=== PATIENT | female | born 1985 | race Caucasian/White ===

== ENCOUNTER → 2023-05-13 14:02 | Outpatient (CLI) | payer OTHER, MEDICAID, SELFPAY ==
[2023-05-13 19:41] LABS: Add Manual Diff / Slide Review NO; Basophils Absolute Auto 100 /uL (0-100); Basophils Percent Auto 0.9 % (0-2); Eosinophils Absolute Auto 100 /uL (0-450); Hematocrit 33.5 % (36-46); Hemoglobin 11.7 g/dL (12.0-16.0); Lymphocytes Absolute Auto 2200 /uL (1100-4500); Lymphocytes Percent Auto 35.1 % (25-40); Mean Corpuscular HGB Conc 34.8 % (30-36); Mean Corpuscular Hemoglobin 32.6 PG (26-34); Mean Corpuscular Volume 93.8 fL (80-100); Monocytes Absolute Auto 600 /uL (0-900); Monocytes Percent Auto 9.4 % (3-14); Neutrophils Absolute Auto 3300 /uL (1500-7000); Neutrophils Percent Auto 52.6 % (50-75); Platelet Count 206 X10^3/uL (150-400); Red Blood Cell Count 3.58 X10^6/uL (4.0-5.2); Red Cell Distribution Width 13.5 % (11.6-14.8); White Blood Cell Count 6.2 X10^3/uL (4.5-11.0)
[2023-05-13 20:02] LABS: BUN Creatinine Ratio 26.8 (6-22); Blood Urea Nitrogen 19 mg/dL (7-17); Calcium 9.9 mg/dL (8.4-10.2); Carbon Dioxide 24 mmol/L (22-32); Chloride 104 mmol/L (98-107); Estimated Glomerular Filt Rate > 60 mL/min (>60); Glucose 76 mg/dL (70-100); HEMOLYSIS < 15 (0-50); Sodium 136 mmol/L (137-145)
[2023-05-13 20:23] LABS: Thyroid Stimulating Hormone 0.448 uIU/mL (0.47-4.68)
[2023-05-14 23:26] LABS: Triiodothyronine T3 Total 86 ng/dL (71-180)
== END ==
PROVIDERS: PCP Family Medicine; Visit Provider Internal Medicine Endocrinology, Diabetes & Metabolism
DX: E03.9 Hypothyroidism, unspecified (principal); R00.0 Tachycardia, unspecified; R55 Syncope and collapse
CPT/HCPCS: 80048; 84443; 84480; 85025

== ENCOUNTER → 2025-03-01 11:41 | Outpatient (CLI) | payer OTHER, SELFPAY ==
[2025-03-01 18:48] LABS: Hematocrit 37.6 % (36-46); Hemoglobin 12.6 g/dL (12.0-16.0); Mean Corpuscular HGB Conc 33.7 % (30-36); Mean Corpuscular Hemoglobin 30.7 PG (26-34); Mean Corpuscular Volume 91.3 fL (80-100); Platelet Count 254 X10^3/uL (150-400)
[2025-03-01 18:50] LABS: HEMOLYSIS 15 (0-50); Iron 126 ug/dL (37-170)
[2025-03-01 18:54] LABS: Blood Urea Nitrogen 16 mg/dL (7-17); Calcium 9.7 mg/dL (8.4-10.2); Carbon Dioxide 25 mmol/L (22-32); Chloride 103 mmol/L (98-107); Cholesterol 318 mg/dL (140-199); Estimated Glomerular Filt Rate > 60 mL/min (>60); Glucose 106 mg/dL (70-99); HDL Cholesterol 104 mg/dL (40-60); HEMOLYSIS < 15 (0-50); Potassium 4.1 mmol/L (3.4-5.1); Sodium 136 mmol/L (137-145); Triglycerides 77 mg/dL (35-150)
[2025-03-01 19:03] LABS: Percent Iron Saturation 32 % (15-50); Total Iron Binding Capacity 398 ug/dL (265-497); Transferrin 353 mg/dL (206-381)
[2025-03-01 19:18] LABS: Vitamin D 25 Hydroxy (D3) 35.5 ng/mL (30.0-100.0)
[2025-03-01 19:21] LABS: TSH w/ Reflex to FT4 1.92 uIU/mL (0.47-4.68); Thyroid Stimulating Hormone 1.92 uIU/mL (0.47-4.68)
[2025-03-01 19:29] LABS: Ferritin 11 ng/mL (6-137)
[2025-03-01 19:57] LABS: Folate 7.7 ng/mL (2.76-20.0); Vitamin B12 274 pg/mL (239-931)
== END ==
PROVIDERS: PCP Family Medicine; Visit Provider Family Medicine
DX: D89.40 Mast cell activation, unspecified (principal); Z98.84 Bariatric surgery status; E56.9 Vitamin deficiency, unspecified; E06.3 Autoimmune thyroiditis; E03.8 Other specified hypothyroidism; D50.9 Iron deficiency anemia, unspecified; L50.9 Urticaria, unspecified
CPT/HCPCS: 80048; 80061; 82306; 82607; 82728; 82746; 83520; 83540; 83550; 84443; 85027

== ENCOUNTER → 2025-04-17 11:24 | Outpatient (CLI) | payer OTHER, SELFPAY ==
[2025-04-17 20:12] LABS: Folate 5.8 ng/mL (2.76-20.0)
== END ==
PROVIDERS: PCP Family Medicine; Visit Provider Family Medicine
DX: R19.7 Diarrhea, unspecified (principal); E56.9 Vitamin deficiency, unspecified; M25.50 Pain in unspecified joint; E53.8 Deficiency of other specified B group vitamins; R79.0 Abnormal level of blood mineral; R78.79 Finding of abnormal level of heavy metals in blood
CPT/HCPCS: 82525; 82746; 82784; 83516; 85651; 86038; 86140; 86200; 86340; 86430

== ENCOUNTER → 2025-05-04 11:46 | Outpatient (CLI) | payer OTHER, SELFPAY ==
[2025-05-06 00:36] LABS: Hepatitis A Antibody IgM Negative (Negative); Hepatitis B Core Antibody IgM Negative (Negative); Hepatitis C Antibody Non Reactive (Non Reactive)
== END ==
PROVIDERS: PCP Family Medicine; Visit Provider Family Medicine
DX: R78.79 Finding of abnormal level of heavy metals in blood (principal)
CPT/HCPCS: 80074; 82390

== ENCOUNTER → 2025-05-08 07:20 | Outpatient (CLI) | payer OTHER, SELFPAY | PROVIDERS: PCP Family Medicine; Visit Provider Family Medicine | DX: R78.79 Finding of abnormal level of heavy metals in blood (principal) | CPT/HCPCS: 82525; 82570 ==

== ENCOUNTER → 2025-05-20 10:45 | Outpatient (CLI) | payer OTHER, SELFPAY ==
--- NOTE | 2025-05-20 10:46 | DI.MRI.S_ITS ---
PROCEDURE: MR HEAD/BRAIN WO/W CON INDICATIONS: hyperreflexia on left, dizziness, poor balance on exam, TECHNIQUE: Noncontrast axial T1 spin echo, axial T2 fast spin echo, sagittal and axial FLAIR, coronal T2 fast spin echo, axial gradient echo, axial diffusion and ADC through the brain. After the administration of contrast, axial and coronal and sagittal 3D VIBE or T1 spin echo with fat saturation through the brain. COMPARISON: None. FINDINGS: Image quality: Excellent. CSF Spaces: Basal cisterns are patent. No extra-axial fluid collections. Ventricles are normal in size and shape. Brain: No midline shift. No intracranial bleeds or masses. No abnormal intracranial enhancement. The brainstem appears normal. Diffusion-weighted images demonstrate no acute infarct. No chronic ischemic insults. Normal intravascular flow voids are present. Skull and face: Calvarial marrow is normal in signal. Orbits appear normal. Sinuses: Sinuses and mastoids appear clear. IMPRESSION: No acute intracranial abnormalities or abnormal intracranial enhancement. Normal appearance of the brain. Approved by: Jalen Geronimo M.D. on 05/20/2025 at 19:34
== END ==
PROVIDERS: PCP Family Medicine; Referring Provider Family Medicine; Visit Provider Family Medicine
DX: R51.9 Headache, unspecified (principal); R26.89 Other abnormalities of gait and mobility; R42 Dizziness and giddiness; R29.2 Abnormal reflex
CPT/HCPCS: 70553; A9579